=== PATIENT | male | born 1960 | race Caucasian/White ===

== ENCOUNTER 2019-04-19 08:27 | Emergency (ER) | payer OTHER ==
[~2019-04-19] VITALS: Ht 175.3 cm; Wt 122.5 kg
[2019-04-19] MEDS ORDERED: ALBUTEROL/IPRATROPIUM 3 ML NEB NEB ONE (08:45)
[2019-04-19] MEDS ORDERED: KETOROLAC TROMETHAMINE 60 MG/2 ML VIAL IM ONE (08:45)
--- NOTE | 2019-04-19 09:31 | Diagnostic Imaging Report ---
CT CHEST WITHOUT CONTRAST HISTORY: chest wall pain, cough, felt "pop", pain left posterior ribs COMPARISON: None available. TECHNIQUE: CT scan of the chest WITHOUT intravenous contrast, using standard protocol. The chest was scanned utilizing a multidetector helical scanner from the apex to the level of the adrenal glands. Coronal and sagittal reformats are provided. IV CONTRAST: None, which limits evaluation of the vascular structures, mediastinum and soft tissues. RADIATION DOSE: Total DLP: 623.67 mGy*cm Dose modulation, iterative reconstruction, and/or weight based adjustment of the mA/kV was utilized to reduce the radiation dose to as low as reasonably achievable. COMPLICATIONS: None FINDINGS: Lines/tubes: None. Lungs and Airways: The lungs and airways are unremarkable. Pleura: No effusion or pneumothorax. Heart and mediastinum: The thyroid gland is normal. The heart and pericardium are within normal limits. Abdomen: Limited nonenhanced views of the upper abdomen. Lymph nodes: No pathologically enlarged lymph node. Vessels: Mild scattered atherosclerotic vascular calcifications, including a coronary artery calcification. Bones: No acute osseous lesion identified. Specifically, no acute displaced fracture. Soft tissues: Otherwise, unremarkable. IMPRESSION: 1. No acute CT abnormality. 2. Atherosclerosis, including a coronary artery calcification. Signed by: Dr. Torin Fountain D.O., M.M.M. on 04/19/2019 9:27 AM
[2019-04-19 10:00] VITALS: BP 131/84
== END 2019-04-19 10:06 | disposition home or self-care (01) ==
LOC: ER 08:27
DX: M54.12 Radiculopathy, cervical region (principal); M54.6 Pain in thoracic spine; S23.3XXA Sprain of ligaments of thoracic spine, initial encounter; R05 Cough; J04.0 Acute laryngitis
CPT/HCPCS: 71250; 93005; 99283; J1885